=== PATIENT | female | born 1950 | race Caucasian/White ===

== ENCOUNTER 2021-03-24 07:17 | Emergency (ER) | payer OTHER, SELFPAY ==
--- NOTE | 2021-03-24 07:35 | ED_ITS ---
HPI - General Adult General Stated complaint: gash in head Time Seen by Provider: 03/24/21 07:20 History of Present Illness HPI narrative: 70-year-old woman with a history of a sonambulism type lucid dreaming with repeated episodes of getting out of bed walking, excessive talking and movement and is currently in the middle of a workup for this presents after actively draining getting out of bed and ending up hitting her forehead on a window sill suffering a 2 cm laceration to her upper forehead. There is some minor contusion over the bridge of nose. Bleeding is controlled. She does not describe any headache or neck pain and there are no other injuries. She describes no recent fevers, cough, chills, palpitations, headaches, acute neurologic changes or focal neurologic findings, no abdominal pain, vomiting, diarrhea. Related Data Allergies Allergy/AdvReac Type Severity Reaction Status Date / Time No Known Drug Allergies Allergy Verified 03/24/21 07:53 Review of Systems Review of Systems Narrative: Remainder of complete review of systems is otherwise unremarkable except for that included in the HPI. Patient History Medical History Depression Somnambulism Social History Smoking Status: Never smoker Exam Initial Vital Signs Initial Vital Signs: General: Alert appropriate in no acute distress HEENT: 2 cm simple laceration to the upper right side of the forehead with bleeding controlled. Minor bruising over the bridge of the nose without obvious deformity. No signs or symptoms of basilar Skull fracture Neck; no cervical spine tenderness Respiratory: Able to speak in full sentences, no obvious respiratory distress Skin: No obvious rashes, warm and dry Neurologic: Grossly intact no obvious asymmetries or abnormalities Psych: appropriate insight and affect, cooperative Procedures Laceration Repair Forehead: Time of procedure: 07:52 Site: face Side (If applicable): right Size (cm): 2 Description: linear Depth: simple, single layer Local Anesthetic: lidocaine 1% and with bicarb Amount of anesthesia used (mL): 2 Pre-repair: wound explored Skin layer closed with: nylon Size (cm): 4-0 Number of sutures: 3 Technique: simple, interrupted Medical Decision Making [facility] Narrative Medical decision making narrative: 70-year-old woman with history of lucid dreaming and increased mobility while she is in REM sleep. 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 There is no evidence of additional injury, no loss of consciousness and no indication for CT scanning or advanced imaging at this time. Recommended sutures come out on or about March 31 or . 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 Your laceration was simple and did not go completely through all of the tissue to the skull. You do not have any signs or symptoms of concussion and there is no indication for CT scanning today I would expect a bit of bruising over the bridge of your nose. Using 400 mg of ibuprofen (2 [id number] pills) and 1 Tylenol every 6 hours can be very helpful in controlling pain. You may also find that ice to your nose and around the laceration can help with some of the tenderness. You will need to have the 3 stitches removed on or about March 31 or . The wound was quite clean and it is unusual to get infections on your face due to the volume of blood flow to your face. However, if you do notice increasing redness pain or discharge this is not normal and does need to be re-evaluated immediately It is okay to go home and go back to bed if you choose. I wish you the best
[2021-03-24 07:38] VITALS: BP 137/63; PULSE 71; RESP 18; TEMP 36.7; O2SAT 99; BMI 29.8
[2021-03-24] MEDS: BACITRACIN OINT 0.9 GM PCKT 1 APPLIC TOP (08:10)
[2021-03-24] MEDS: LIDO 1%/SOD BICARB 8.4% (10ML) 10 ML SYRINGE INJ (08:10)
== END 2021-03-24 08:27 | disposition home or self-care (01) ==
PROVIDERS: Emergency Provider Emergency Medicine; PCP Family Medicine
DX: S01.81XA Laceration without foreign body of other part of head, initial encounter (principal); W22.8XXA Striking against or struck by other objects, initial encounter
CPT/HCPCS: 12011; 99282; 99283